=== PATIENT | female | born 1980 | race Caucasian/White ===

== ENCOUNTER 2020-03-31 12:53 | Emergency (ER) | payer SELFPAY ==
[2020-03-31 13:20] VITALS: BP 119/75; PULSE 91; RESP 18; TEMP 36.6; O2SAT 98; BMI 25.0
[2020-03-31 17:13] LABS: UPreg QC Valid YES; Urine Pregnancy NEGATIVE (NEGATIVE)
== END 2020-03-31 18:40 | disposition left against medical advice (07) ==
LOC: HO.ED 18:38
PROVIDERS: Emergency Provider Emergency Medicine; PCP Internal Medicine
DX: R10.9 Unspecified abdominal pain (principal)
CPT/HCPCS: 81025; 99281; 99282

== ENCOUNTER → 2025-01-27 12:20 | Outpatient (BNVA) | payer SELFPAY | PROVIDERS: Visit Provider Physician Assistant Medical | DX: Z02.79 Encounter for issue of other medical certificate (principal) ==